=== PATIENT | male | born 1970 | race Caucasian/White ===

== ENCOUNTER 2018-03-01 19:21 | Emergency (ER) | payer OTHER ==
[~2018-03-01] VITALS: Ht 177.8 cm; Wt 93.9 kg
[2018-03-01 19:31] VITALS: BP 169/99; Ht 177.8 cm; Wt 93.9 kg
== END 2018-03-01 20:26 | disposition home or self-care (01) ==
LOC: ED 19:21
DX: R50.9 Fever, unspecified (principal); R03.0 Elevated blood-pressure reading, without diagnosis of hypertension; M79.1 Myalgia

== ENCOUNTER 2018-10-03 20:45 | Emergency (ER) | payer OTHER ==
[~2018-10-03] VITALS: Ht 177.8 cm; Wt 95.3 kg
[2018-10-03 20:57] VITALS: Ht 177.8 cm; Wt 95.3 kg
[2018-10-03 23:18] VITALS: BP 150/100
== END 2018-10-03 23:18 | disposition home or self-care (01) ==
LOC: ED 20:45
DX: M54.5 Low back pain (principal)
CPT/HCPCS: J1885